=== PATIENT | male | born 1925 | race Caucasian/White ===

== ENCOUNTER 2016-12-31 18:45 | Inpatient (IN) | payer MEDICARE, BC ==
--- NOTE | 2016-12-31 19:24 | EDM.PDOC ---
ED HPI GENERAL MEDICAL PROBLEM - General Chief Complaint: General Stated Complaint: DEHYDRATED, COMING BY AMBULANCE Time Seen by Provider: 12/31/16 19:15 Source of Information: Reports: Patient History Limitations: Reports: No Limitations - History of Present Illness INITIAL COMMENTS - FREE TEXT/NARRATIVE: This 89 yo male patient was brought to the ED by [facility] due to a 3-4 day history of diarrhea, increased shortness of breath and difficulties ambulating due to weakness. The patient reports he started to have diarrhea about 4 days ago and has continued to have loose bowel movements. The patient reports he has been having at least 6 loose stools per day. The patient reports his shortness of breath has been getting worse over the same time period. The patient normally sees Dr. Caruso, but has not been seen with his current symptoms. Onset Date: 12/27/16 Duration: Constant, Getting Worse Location: Reports: Chest (shortness of breath), Generalized (weakness) Quality: Reports: Dull Severity: Moderate Improves with: Reports: None Worsens with: Reports: None Associated Symptoms: Reports: Cough, Shortness of Breath, Weakness, Other ( diarrhea) - Related Data Allergies Allergy/AdvReac Type Severity Reaction Status Date / Time calcium Allergy Unknown UNKNOWN Verified 12/31/16 20:38 fluticasone Allergy Unknown UNKNOWN Verified 12/31/16 20:38 niacin Allergy Unknown UNKNOWN Verified 12/31/16 20:38 pravastatin Allergy Unknown UNKNOWN Verified 12/31/16 20:38 simvastatin Allergy Unknown UNKNOWN Verified 12/31/16 20:38 Sulfa (Sulfonamide Allergy Unknown UNKNOWN Verified 12/31/16 20:38 Antibiotics) Home Meds: Home Meds Furosemide [Furosemide] 1 tab PO DAILY 12/31/16 [History] Metoprolol Succinate [Toprol XL] 100 mg PO DAILY 12/31/16 [History] Past Medical History HEENT History: Reports: Hard of Hearing, Impaired Vision Cardiovascular History: Reports: Hypertension Respiratory History: Reports: None Psychiatric History: Reports: None Endocrine/Metabolic History: Reports: Other (See Below) Other Endocrine/Metabolic History: was diabetic, medications have been stopped Hematologic History: Reports: None Immunologic History: Reports: None Oncologic (Cancer) History: Reports: None Dermatologic History: Reports: None - Past Surgical History Cardiovascular Surgical History: Reports: Coronary Artery Bypass, Vascular Surgery Male Surgical History: Reports: Other (See Below) Other Male Surgeries/Procedures: 1 testicle removed Social & Family History - Tobacco Use Smoking Status *Q: Never Smoker - Recreational Drug Use Recreational Drug Use: No ED ROS GENERAL - Review of Systems Review Of Systems: ROS reveals no pertinent complaints other than HPI. ED EXAM, GENERAL - Physical Exam Exam: See Below Exam Limited By: No Limitations General Appearance: Alert, WD/WN, Moderate Distress, Thin Eye Exam: Bilateral Eye: EOMI, Normal Inspection, PERRL Ears: Normal External Exam, Normal Canal, Hearing Grossly Normal, Normal TMs Nose: Normal Inspection, Normal Mucosa, No Blood Throat/Mouth: Normal Inspection, Normal Lips, Normal Teeth, Normal Gums, Normal Oropharynx, Normal Voice, No Airway Compromise Head: Atraumatic, Normocephalic Neck: Normal Inspection, Supple, Non-Tender, Full Range of Motion Respiratory/Chest: No Respiratory Distress, Lungs Clear, Normal Breath Sounds, No Accessory Muscle Use, Chest Non-Tender Cardiovascular: Normal Peripheral Pulses, Regular Rate, Rhythm, No Edema, No Gallop, No JVD, No Murmur, No Rub GI/Abdominal: Normal Bowel Sounds, Soft, Non-Tender, No Organomegaly, No Distention, No Abnormal Bruit, No Mass (Male) Exam: Deferred Rectal (Males) Exam: Deferred Extremities: Normal Inspection, Normal Range of Motion, Non-Tender, Normal Capillary Refill, No Pedal Edema Neurological: Alert, Oriented, CN II-XII Intact, Normal Cognition, Normal Gait, Normal Reflexes, No Motor/Sensory Deficits Psychiatric: Normal Affect, Normal Mood Skin Exam: Warm, Dry, Intact, Normal Color, No Rash Lymphatic: No Adenopathy Course - Vital Signs Last Recorded V/S: Last Vital Signs Temp 36.1 C 12/31/16 18:42 Pulse 66 12/31/16 18:42 Resp 20 12/31/16 18:42 BP 93/78 12/31/16 18:42 Pulse Ox 100 12/31/16 18:42 - Orders/Labs/Meds Orders: Active Orders 24 hr Category Date Time Status EKG 12 Lead [EKG Documentation Completion] [RC] STAT Care 12/31/16 19:40 Active CULTURE BLOOD [BC] Stat Lab 12/31/16 19:05 Received CULTURE URINE [RM] Stat Lab 12/31/16 20:45 Ordered Sodium Chloride 0.9% [Normal Saline] 1,000 ml Med 12/31/16 20:37 Active IV .BOLUS Medication Orders Sodium Chloride (Normal Saline) 1,000 mls @ 999 mls/hr IV .BOLUS ONE Stop: 12/31/16 21:37 Last Admin: 12/31/16 20:30 Dose: 999 mls/hr Labs: Laboratory Tests 12/31/16 12/31/16 12/31/16 Range/Units 19:05 19:05 19:05 WBC 10.0 (5.0-10.0) 10^3/uL RBC 3.39 L (4.6-6.2) 10^6/uL Hgb 10.1 L (14.0-18.0) g/dL Hct 30.5 L (40.0-54.0) % MCV 90.0 (80-100) fL MCH 29.8 (27.0-34.0) pg MCHC 33.1 (33.0-35.0) g/dL Plt Count 184 (150-450) 10^3/uL Add Manual Diff Yes Neutrophils % (Manual) 78 % Band Neutrophils % 1 % Lymphocytes % (Manual) 12 % Monocytes % (Manual) 9 % Sodium 140 (135-145) mmol/L Potassium 4.2 (3.6-5.0) mmol/L Chloride 101 (101-111) mmol/L Carbon Dioxide 19.0 L (21.0-31.0) mmol/L Anion Gap 24.2 BUN 80 H (7-18) mg/dL Creatinine 3.7 H (0.6-1.3) mg/dL Est Cr Clr Drug Dosing 10.42 mL/min Estimated GFR (MDRD) 16 BUN/Creatinine Ratio 21.62 Glucose 148 H (74-105) mg/dL Lactic Acid 1.5 (0.5-2.2) mmol/L Calcium 9.6 (8.4-10.2) mg/dl Magnesium 2.4 (1.8-2.5) mg/dL Total Bilirubin 0.9 (0.2-1.0) mg/dL AST 22 (10-42) IU/L ALT 15 (10-60) IU/L Alkaline Phosphatase 74 (42-121) IU/L Troponin I 0.05 H* (0.00-0.02) ng/ml B-Natriuretic Peptide 417 H (0-100) pg/ml Total Protein 7.3 (6.7-8.2) g/dl Albumin 3.4 (3.2-5.5) g/dl Globulin 3.9 Albumin/Globulin Ratio 0.87 Urine Color (YELLOW) Urine Appearance (CLEAR) Urine pH (5.0-9.0) Ur Specific [place] (1.005-1.030) Urine Protein (NEGATIVE) Urine Glucose (UA) (NEGATIVE) Urine Ketones (NEGATIVE) Urine Occult Blood (NEGATIVE) Urine Nitrite (NEGATIVE) Urine Bilirubin (NEGATIVE) Urine Urobilinogen (0.2-1.0) mg/dL Ur Leukocyte Esterase (NEGATIVE) Urine RBC /HPF Urine WBC (0-5/HPF) /HPF Ur Epithelial Cells /HPF Urine Bacteria (0-FEW/HPF) /HPF 12/31/16 Range/Units 19:46 WBC (5.0-10.0) 10^3/uL RBC (4.6-6.2) 10^6/uL Hgb (14.0-18.0) g/dL Hct (40.0-54.0) % MCV (80-100) fL MCH (27.0-34.0) pg MCHC (33.0-35.0) g/dL Plt Count (150-450) 10^3/uL Add Manual Diff Neutrophils % (Manual) % Band Neutrophils % % Lymphocytes % (Manual) % Monocytes % (Manual) % Sodium (135-145) mmol/L Potassium (3.6-5.0) mmol/L Chloride (101-111) mmol/L Carbon Dioxide (21.0-31.0) mmol/L Anion Gap BUN (7-18) mg/dL Creatinine (0.6-1.3) mg/dL Est Cr Clr Drug Dosing mL/min Estimated GFR (MDRD) BUN/Creatinine Ratio Glucose (74-105) mg/dL Lactic Acid (0.5-2.2) mmol/L Calcium (8.4-10.2) mg/dl Magnesium (1.8-2.5) mg/dL Total Bilirubin (0.2-1.0) mg/dL AST (10-42) IU/L ALT (10-60) IU/L Alkaline Phosphatase (42-121) IU/L Troponin I (0.00-0.02) ng/ml B-Natriuretic Peptide (0-100) pg/ml Total Protein (6.7-8.2) g/dl Albumin (3.2-5.5) g/dl Globulin Albumin/Globulin Ratio Urine Color Yellow (YELLOW) Urine Appearance Cloudy (CLEAR) Urine pH 6.0 (5.0-9.0) Ur Specific [place] 1.015 (1.005-1.030) Urine Protein >=300 H (NEGATIVE) Urine Glucose (UA) Negative (NEGATIVE) Urine Ketones 15 H (NEGATIVE) Urine Occult Blood Large H (NEGATIVE) Urine Nitrite Negative (NEGATIVE) Urine Bilirubin Small H (NEGATIVE) Urine Urobilinogen 0.2 (0.2-1.0) mg/dL Ur Leukocyte Esterase Large H (NEGATIVE) Urine RBC 5-10 H /HPF Urine WBC Packed H (0-5/HPF) /HPF Ur Epithelial Cells Occasional /HPF Urine Bacteria Many H (0-FEW/HPF) /HPF Meds: Medications Generic Name Dose Route Start Last Admin Trade Name Freq PRN Reason Stop Dose Admin Sodium Chloride 1,000 mls @ 999 mls/hr 12/31/16 20:37 12/31/16 20:30 Normal Saline IV 12/31/16 21:37 999 mls/hr .BOLUS ONE Administration Departure - Departure Time of Disposition: 21:15 Disposition: Admitted As Inpatient 68 Condition: Poor Clinical Impression: ARF (acute renal failure) Qualifiers: Acute renal failure type: unspecified Qualified Code(s): N17.9 - Acute kidney failure, unspecified - Discharge Information Care Plan Goals: Discussed the history, examination, lab, EKG and x-ray results with Dr. Roldan. Dr. Roldan accepted the patient as an inpatient at [facility] in [place]. - My Orders Last 24 Hours: My Active Orders 12/31/16 19:05 CULTURE BLOOD [BC] Stat 12/31/16 19:40 EKG 12 Lead [EKG Documentation Completion] [RC] STAT 12/31/16 20:37 Sodium Chloride 0.9% [Normal Saline] 1,000 ml IV .BOLUS 12/31/16 20:45 CULTURE URINE [RM] Stat - Assessment/Plan Last 24 Hours: My Active Orders 12/31/16 19:05 CULTURE BLOOD [BC] Stat 12/31/16 19:40 EKG 12 Lead [EKG Documentation Completion] [RC] STAT 12/31/16 20:37 Sodium Chloride 0.9% [Normal Saline] 1,000 ml IV .BOLUS 12/31/16 20:45 CULTURE URINE [] Stat
[2016-12-31] MEDS ORDERED: Sodium Chloride 0.9% 1,000 ML IV ONE (20:37)
[2016-12-31] MEDS ORDERED: Ondansetron 4 MG/2 ML SDV IVPUSH PRN (21:55)
[2016-12-31] MEDS ORDERED: oxyCODONE 5 MG Tab PO PRN (21:55)
[2016-12-31] MEDS ORDERED: Ondansetron 4 MG Tab.DIS PO PRN (21:55)
[2016-12-31] MEDS ORDERED: Zolpidem 5 MG Tab PO PRN (21:55)
[2016-12-31] MEDS ORDERED: Morphine 2 MG/ML Syringe IVPUSH PRN (21:55)
--- NOTE | 2016-12-31 22:02 | PCM.HP ---
H&P History of Present Illness - General Date of Service: 12/31/16 Admit Problem/Dx: Admission Diagnosis/Problem Admission Diagnosis/Problem Acute renal failure Source of Information: Patient, Family (daughter), Provider (er) - History of Present Illness Initial Comments - Free Text/Narative: 89-year-old gentleman with a history of coronary artery disease, diabetes, hypertension, dyslipidemia. He is the primary caregiver of his who has significant dementia, weakness. Presented with weakness, diarrhea. The diarrhea started to 3 weeks ago. Has up to 5 brown bowel movement daily. Has been getting progressively weaker. No associated chest pain, no abdominal pain. Does have moderate urinary burning. No associated fever or chills. - Related Data Allergies/Adverse Reactions: Allergies Allergy/AdvReac Type Severity Reaction Status Date / Time calcium Allergy Unknown UNKNOWN Verified 12/31/16 20:38 fluticasone Allergy Unknown UNKNOWN Verified 12/31/16 20:38 niacin Allergy Unknown UNKNOWN Verified 12/31/16 20:38 pravastatin Allergy Unknown UNKNOWN Verified 12/31/16 20:38 simvastatin Allergy Unknown UNKNOWN Verified 12/31/16 20:38 Sulfa (Sulfonamide Allergy Unknown UNKNOWN Verified 12/31/16 20:38 Antibiotics) Home Medications: Home Meds Furosemide [Furosemide] 1 tab PO DAILY 12/31/16 [History] Metoprolol Succinate [Toprol XL] 100 mg PO DAILY 12/31/16 [History] Past Medical History HEENT History: Reports: Hard of Hearing, Impaired Vision Cardiovascular History: Reports: Hypertension Respiratory History: Reports: None Psychiatric History: Reports: None Endocrine/Metabolic History: Reports: Other (See Below) Other Endocrine/Metabolic History: was diabetic, medications have been stopped Hematologic History: Reports: None Immunologic History: Reports: None Oncologic (Cancer) History: Reports: None Dermatologic History: Reports: None - Past Surgical History Cardiovascular Surgical History: Reports: Coronary Artery Bypass, Vascular Surgery Male Surgical History: Reports: Other (See Below) Other Male Surgeries/Procedures: 1 testicle removed Social & Family History - Tobacco Use Smoking Status *Q: Never Smoker - Recreational Drug Use Recreational Drug Use: No H&P Review of Systems - Review of Systems: Review Of Systems: See Below General: Reports: Malaise, Weakness, Fatigue, Decreased Appetite, Weight Loss. Denies: Fever, Chills Pulmonary: Denies: Shortness of Breath, Wheezing Cardiovascular: Denies: Chest Pain, Palpitations Gastrointestinal: Reports: Diarrhea, Nausea, Stool Incontinence. Denies: Abdominal Pain, Vomiting Genitourinary: Reports: Dysuria, Frequency, Burning Psychiatric: Denies: Confusion Exam - Exam Exam: See Below - Vital Signs Vital Signs: Last Vital Signs Temp 36.1 C 12/31/16 18:42 Pulse 66 12/31/16 18:42 Resp 20 12/31/16 18:42 BP 93/78 12/31/16 18:42 Pulse Ox 100 12/31/16 18:42 Weight: 54.431 kg - Exam General: Alert, Oriented Neck: Supple Lungs: Normal Respiratory Effort, Decreased Breath Sounds. No: Rales, Rhonchi Cardiovascular: Regular Rate, Regular Rhythm GI/Abdominal Exam: Normal Bowel Sounds, Soft, Non-Tender Extremities: No Pedal Edema Skin: Warm, Dry Neuro Extensive - Mental Status: Alert, Oriented x3, Normal Mood/Affect - Patient Data Lab Results Last 24 hrs: Chest x-ray by my reading shows no acute infiltrate, no CHF. Result Diagrams: 12/31/16 19:05 12/31/16 19:05 *Q Meaningful Use (ADM) - VTE *Q VTE Criteria *Q: - Stroke *Q Stroke Criteria *Q: - AMI *Q AMI Criteria *Q: - Problem List (1) UTI (urinary tract infection) SNOMED Code(s): 56953509 ICD Code: N39.0 - URINARY TRACT INFECTION, SITE NOT SPECIFIED Status: Acute Current Visit: Yes (2) Diarrhea SNOMED Code(s): 41122310 ICD Code: R19.7 - DIARRHEA, UNSPECIFIED Status: Acute Current Visit: Yes (3) HTN (hypertension) SNOMED Code(s): 58765621 ICD Code: I10 - ESSENTIAL (PRIMARY) HYPERTENSION Status: Acute Current Visit: Yes (4) CAD (coronary artery disease) SNOMED Code(s): 13126896 ICD Code: I25.10 - ATHSCL HEART DISEASE OF [place] CORONARY ARTERY W/O ANG PCTRS Status: Acute Current Visit: Yes (5) ARF (acute renal failure) SNOMED Code(s): 60448632 ICD Code: N17.9 - ACUTE KIDNEY FAILURE, UNSPECIFIED Status: Acute Current Visit: Yes Qualifiers: Acute renal failure type: unspecified Qualified Code(s): N17.9 - Acute kidney failure, unspecified Problem List Initiated/Reviewed/Updated: Yes Orders Last 24hrs: Active Orders 24 hr Category Date Time Status Patient Status [ADT] Routine ADT 12/31/16 21:55 Ordered Antiembolic Devices [RC] PER UNIT ROUTINE Care 12/31/16 21:57 Ordered Glucose [Blood Glucose Check, Bedside] [RC] QIDACANDBED Care 12/31/16 21:54 Ordered Oxygen Therapy [RC] PRN Care 12/31/16 21:55 Ordered Peripheral IV Care [RC] . DIRECTED Care 12/31/16 21:57 Ordered Up With Assistance [RC] ASDIRECTED Care 12/31/16 21:55 Ordered VTE/DVT Education [RC] PER UNIT ROUTINE Care 12/31/16 21:55 Ordered Vital Signs [RC] Q4H Care 12/31/16 21:55 Ordered OT Evaluation and Treatment [CONS] Routine Cons 12/31/16 21:54 Ordered PT Evaluation and Treatment [CONS] Routine Cons 12/31/16 21:54 Ordered Consistent Carbohydrate Diet [DIET] Diet 12/31/16 Breakfast Ordered BASIC METABOLIC PANEL,BMP [CHEM] AM Lab 01/01/17 05:15 Ordered C DIFFICILE TOXIN BY PCR [MREF] Routine Lab 12/31/16 21:53 Uncollected CBC WITH AUTO DIFF [HEME] AM Lab 01/01/17 05:15 Ordered MAGNESIUM [CHEM] AM Lab 01/01/17 05:11 Ordered PHOSPHORUS [CHEM] AM Lab 01/01/17 05:11 Ordered TROPONIN I [CHEM] AM Lab 01/01/17 05:11 Ordered Acetaminophen [Tylenol] Med 12/31/16 21:55 Ordered 650 mg PO Q4H PRN Aspirin Med 01/01/17 08:00 Ordered 81 mg PO WITHBREAKFAST Heparin Sodium Med 12/31/16 22:00 Ordered 5,000 units SUBCUT Q8HR Insulin Aspart [NovoLOG] Med 01/01/17 08:00 Ordered See Protocol SUBCUT TIDAC Metoprolol Succinate [Toprol XL] Med 01/01/17 09:00 Ordered 100 mg PO DAILY Morphine Med 12/31/16 21:55 Ordered 1 mg IVPUSH Q2H PRN Ondansetron [Zofran ODT] Med 12/31/16 21:55 Ordered 4 mg PO Q6H PRN Ondansetron [Zofran] Med 12/31/16 21:55 Ordered 4 mg IVPUSH Q6H PRN Sodium Chloride 0.9% @ 100 MLS/HR(1,000ml) Med 12/31/16 22:00 Ordered Sodium Chloride 0.9% [Normal Saline] 1,000 ml IV ASDIRECTED Sodium Chloride 0.9% [Saline Flush] Med 12/31/16 21:55 Ordered 10 ml FLUSH ASDIRECTED PRN Zolpidem [Ambien] Med 12/31/16 21:55 Ordered 5 mg PO BEDTIME PRN cefTRIAXone [Rocephin] 1 gm Med 12/31/16 22:00 Ordered Sodium Chloride 0.9% [Normal Saline] 50 ml IV Q24H oxyCODONE Med 12/31/16 21:55 Ordered 5 mg PO Q4H PRN Peripheral IV Insertion Adult [OM.PC] Routine Oth 12/31/16 21:55 Ordered Sequential Compression Device [OM.PC] Per Unit Routine Oth 12/31/16 21:57 Ordered Resuscitation Status Routine Resus Stat 12/31/16 21:55 Ordered Medication Orders Acetaminophen (Tylenol) 650 mg PO Q4H PRN PRN Reason: Pain (Mild 1-3)/fever Aspirin (Aspirin) 81 mg PO WITHBREAKFAST [facility] Heparin Sodium (Porcine) (Heparin Sodium) 5,000 units SUBCUT Q8HR [facility] Sodium Chloride (Normal Saline) 1,000 mls @ 100 mls/hr IV ASDIRECTED TRISTAN Ceftriaxone Sodium 1 gm/ (Sodium Chloride) 50 mls @ 100 mls/hr IV Q24H [facility] Insulin Aspart (Novolog) 0 unit SUBCUT TIDAC TRISTAN PRN Reason: Protocol Morphine Sulfate (Morphine) 1 mg IVPUSH Q2H PRN PRN Reason: Pain (severe 7-10) Non-Formulary Medication (Metoprolol Succinate [Toprol Xl]) 100 mg PO DAILY [facility] Ondansetron HCl (Zofran Odt) 4 mg PO Q6H PRN PRN Reason: nausea, able to take PO Ondansetron HCl (Zofran) 4 mg IVPUSH Q6H PRN PRN Reason: Nausea/Vomiting Oxycodone HCl (Oxycodone) 5 mg PO Q4H PRN PRN Reason: Pain (moderate 4-6) Sodium Chloride (Saline Flush) 10 ml FLUSH ASDIRECTED PRN PRN Reason: Keep Vein Open Zolpidem Tartrate (Ambien) 5 mg PO BEDTIME PRN PRN Reason: Sleep Assessment/Plan Comment:: Acute renal failure with a history of chronic kidney disease stage II Likely due to dehydration due to nausea vomiting, diarrhea Well give the patient IV fluids Hold Lasix, lisinopril Follow electrolytes and renal function Diabetes Has low oral intake For now hold amaryl and follow blood sugars Use supplemental insulin as needed Minimally elevated troponin Has history of coronary artery disease, status post CABG Likely due to renal failure Will recheck in the morning Continue metoprolol, aspirin Urinary tract infection Will check urine culture, blood culture Start on Rocephin Diarrhea Check for C. difficile Will hydrate Follow clinically History of hypertension Due to acute renal failure hold the lisinopril History of dyslipidemia DVT prophylaxis will be with subcutaneous heparin Significant weakness We will consult physical and occupational therapy for evaluation and treatment Resuscitative efforts were discussed with the patient He wished to be DNR Discussed with the ER provider, , daughter
[2016-12-31] MEDS: Sodium Chloride 0.9% 1,000 ML IV SCH (22:34)
[2016-12-31] MEDS: cefTRIAXone 1 GM in Sodium Chloride 0.9% 50 ML IV SCH (22:37)
[2016-12-31] MEDS: Heparin Sodium 5,000 Units/ML Vial SUBCUT SCH (22:40)
[2017-01-01] MEDS: Heparin Sodium 5,000 Units/ML Vial SUBCUT SCH ×3 (06:03→22:28)
[2017-01-01] MEDS: Insulin Aspart 100 Units/ML 3 ML Pen SUBCUT SCH ×3 (08:13→17:44)
[2017-01-01] MEDS: Aspirin 81 MG Tab.Chew PO SCH (09:05)
[2017-01-01] MEDS: Metoprolol Succinate 50 MG Tab.ER PO SCH (09:05)
[2017-01-01] MEDS: Sodium Chloride 0.9% 1,000 ML IV SCH ×2 (09:10→19:26)
--- NOTE | 2017-01-01 10:41 | PCM.PN ---
- General Info Date of Service: 01/01/17 Admission Dx/Problem (Free Text): Admission Diagnosis/Problem Admission Diagnosis/Problem Acute renal failure Subjective Update: Remained stable stable overnight. No chest pain, no shortness of breath, no more diarrhea. No fever or chills. Functional Status: Reports: Pain Controlled - Review of Systems General: Reports: Weakness, Fatigue, Malaise. Denies: Fever, Chills Pulmonary: Denies: Shortness of Breath Cardiovascular: Denies: Chest Pain Neurological: Denies: Confusion - Patient Data Vitals - Most Recent: Last Vital Signs Temp 36.7 C 01/01/17 08:27 Pulse 68 01/01/17 09:05 Resp 20 01/01/17 08:27 BP 117/41 L 01/01/17 09:05 Pulse Ox 98 01/01/17 08:27 Weight - Most Recent: 54.431 kg I&O - Last 24 Hours: Intake & Output 12/31/16 01/01/17 01/01/17 22:59 06:59 14:59 Intake Total 1000 792 Balance 1000 792 Lab Results Last 24 Hours: Laboratory Results - last 24 hr 01/01/17 01/01/17 01/01/17 Range/Units 06:40 06:40 07:50 WBC 11.9 H (5.0-10.0) 10^3/uL RBC 3.41 L (4.6-6.2) 10^6/uL Hgb 10.2 L (14.0-18.0) g/dL Hct 31.1 L (40.0-54.0) % MCV 91.2 (80-100) fL MCH 29.9 (27.0-34.0) pg MCHC 32.8 L (33.0-35.0) g/dL Plt Count 177 (150-450) 10^3/uL Add Manual Diff Yes Neutrophils % (Manual) 76 % Band Neutrophils % 3 % Lymphocytes % (Manual) 8 % Monocytes % (Manual) 13 % Sodium 142 (135-145) mmol/L Potassium 3.4 L (3.6-5.0) mmol/L Chloride 106 (101-111) mmol/L Carbon Dioxide 20.0 L (21.0-31.0) mmol/L Anion Gap 19.4 BUN 70 H (7-18) mg/dL Creatinine 3.0 H (0.6-1.3) mg/dL Est Cr Clr Drug Dosing 12.85 mL/min Estimated GFR (MDRD) 20 Glucose 132 H (74-105) mg/dL POC Glucose 126 H (83-110) mg/dl Calcium 8.7 (8.4-10.2) mg/dl Phosphorus 3.3 (2.5-4.6) mg/dL Magnesium 2.2 (1.8-2.5) mg/dL Troponin I 0.07 H* (0.00-0.02) ng/ml Med Orders - Current: Current Medications Acetaminophen (Tylenol) 650 mg PO Q4H PRN PRN Reason: Pain (Mild 1-3)/fever Aspirin (Aspirin) 81 mg PO WITHBREAKFAST [facility] Last Admin: 01/01/17 09:05 Dose: 81 mg Heparin Sodium (Porcine) (Heparin Sodium) 5,000 units SUBCUT Q8HR [facility] Last Admin: 01/01/17 06:03 Dose: 5,000 units Sodium Chloride (Normal Saline) 1,000 mls @ 100 mls/hr IV ASDIRECTED [facility] Last Admin: 01/01/17 09:10 Dose: 100 mls/hr Ceftriaxone Sodium 1 gm/ (Sodium Chloride) 50 mls @ 100 mls/hr IV Q24H [facility] Last Admin: 12/31/16 22:37 Dose: 100 mls/hr Insulin Aspart (Novolog) 0 unit SUBCUT TIDAC [facility] PRN Reason: Protocol Last Admin: 01/01/17 08:13 Dose: Not Given Metoprolol Succinate (Toprol Xl) 100 mg PO DAILY [facility] Last Admin: 01/01/17 09:05 Dose: 100 mg Morphine Sulfate (Morphine) 1 mg IVPUSH Q2H PRN PRN Reason: Pain (severe 7-10) Ondansetron HCl (Zofran Odt) 4 mg PO Q6H PRN PRN Reason: nausea, able to take PO Ondansetron HCl (Zofran) 4 mg IVPUSH Q6H PRN PRN Reason: Nausea/Vomiting Oxycodone HCl (Oxycodone) 5 mg PO Q4H PRN PRN Reason: Pain (moderate 4-6) Potassium Chloride (Klor-Con 10) 20 meq PO BIDMEALS [facility] Stop: 01/02/17 08:01 Sodium Chloride (Saline Flush) 10 ml FLUSH ASDIRECTED PRN PRN Reason: Keep Vein Open Zolpidem Tartrate (Ambien) 5 mg PO BEDTIME PRN PRN Reason: Sleep Discontinued Medications Sodium Chloride (Normal Saline) 1,000 mls @ 999 mls/hr IV .BOLUS ONE Stop: 12/31/16 21:37 Last Infusion: 12/31/16 20:45 Dose: 125 mls/hr - Exam General: Alert, Oriented Neck: Supple Lungs: Normal Respiratory Effort, Decreased Breath Sounds GI/Abdominal Exam: Normal Bowel Sounds, Soft, Non-Tender Extremities: No Pedal Edema Skin: Warm, Dry Neurological: No New Focal Deficit Psy/Mental Status: Alert, Normal Affect, Normal Mood - Problem List & Annotations (1) UTI (urinary tract infection) SNOMED Code(s): 39909854 Code(s): N39.0 - URINARY TRACT INFECTION, SITE NOT SPECIFIED Status: Acute Current Visit: Yes (2) Diarrhea SNOMED Code(s): 16392633 Code(s): R19.7 - DIARRHEA, UNSPECIFIED Status: Acute Current Visit: Yes (3) HTN (hypertension) SNOMED Code(s): 06972466 Code(s): I10 - ESSENTIAL (PRIMARY) HYPERTENSION Status: Acute Current Visit: Yes (4) CAD (coronary artery disease) SNOMED Code(s): 51657283 Code(s): I25.10 - ATHSCL HEART DISEASE OF [place] CORONARY ARTERY W/O ANG PCTRS Status: Acute Current Visit: Yes (5) ARF (acute renal failure) SNOMED Code(s): 45181356 Code(s): N17.9 - ACUTE KIDNEY FAILURE, UNSPECIFIED Status: Acute Current Visit: Yes Qualifiers: Acute renal failure type: unspecified Qualified Code(s): N17.9 - Acute kidney failure, unspecified - Problem List Review Problem List Initiated/Reviewed/Updated: Yes - My Orders Last 24 Hours: My Active Orders 01/01/17 08:49 Consult to Speech Language Pathology [VIDEO PRODUCTION INTERN Evaluation and Treatment] [CONS] Routine 01/01/17 18:00 Potassium Chloride [Klor-Con 10] 20 meq PO BIDMEALS - Plan Plan:: Acute renal failure with a history of chronic kidney disease stage II Likely due to dehydration due to nausea vomiting, diarrhea Improving Well give the patient IV fluids Continue to Hold Lasix, lisinopril Follow electrolytes and renal function Diabetes Has low oral intake For now hold amaryl and follow blood sugars Use supplemental insulin as needed Minimally elevated troponin Has history of coronary artery disease, status post CABG Likely due to renal failure Continue metoprolol, aspirin Urinary tract infection Pending urine culture, blood culture Continue on Rocephin Diarrhea Check for C. difficile Will hydrate Follow clinically History of hypertension Due to acute renal failure hold the lisinopril DVT prophylaxis will be with subcutaneous heparin Significant weakness We will consult physical and occupational therapy for evaluation and treatment Resuscitative efforts were discussed with the patient on admission He wished to be DNR
[2017-01-01] MEDS: Potassium Chloride 10% 20 MEQ/15 ML Soln 15 ML UD Cup PO SCH (17:44)
[2017-01-01] MEDS ORDERED: Potassium Chloride 10 MEQ Tab.ER PO SCH (18:00)
[2017-01-01] MEDS: cefTRIAXone 1 GM in Sodium Chloride 0.9% 50 ML IV SCH (22:28)
[2017-01-02] MEDS: Sodium Chloride 0.9% 1,000 ML IV SCH ×2 (06:04→16:19)
[2017-01-02] MEDS: Heparin Sodium 5,000 Units/ML Vial SUBCUT SCH ×3 (06:06→23:38)
[2017-01-02] MEDS: Potassium Chloride 10% 20 MEQ/15 ML Soln 15 ML UD Cup PO SCH (09:46)
[2017-01-02] MEDS: Metoprolol Succinate 50 MG Tab.ER PO SCH (09:46)
[2017-01-02] MEDS: Insulin Aspart 100 Units/ML 3 ML Pen SUBCUT SCH ×3 (09:46→17:56)
[2017-01-02] MEDS: Aspirin 81 MG Tab.Chew PO SCH (09:46)
--- NOTE | 2017-01-02 12:47 | PCM.PN ---
- General Info Date of Service: 01/02/17 Admission Dx/Problem (Free Text): Admission Diagnosis/Problem Admission Diagnosis/Problem Acute renal failure Subjective Update: Remained stable stable overnight. No chest pain, no shortness of breath, no more diarrhea. No fever or chills. c/o difficulty swallowing food and saliva small amounts of spitting up - Review of Systems General: Reports: Weakness. Denies: Fever Pulmonary: Denies: Shortness of Breath Cardiovascular: Denies: Chest Pain Gastrointestinal: Denies: Abdominal Pain Neurological: Denies: Confusion - Patient Data Vitals - Most Recent: Last Vital Signs Temp 36.6 C 01/02/17 11:00 Pulse 58 L 01/02/17 11:00 Resp 18 01/02/17 11:00 BP 147/59 H 01/02/17 11:00 Pulse Ox 100 01/02/17 11:00 Weight - Most Recent: 54.431 kg I&O - Last 24 Hours: Intake & Output 01/01/17 01/02/17 01/02/17 22:59 06:59 14:59 Intake Total 1100 Balance 1100 Lab Results Last 24 Hours: Laboratory Results - last 24 hr 01/01/17 01/01/17 01/02/17 Range/Units 16:54 20:47 06:35 WBC 9.8 (5.0-10.0) 10^3/uL RBC 3.18 L (4.6-6.2) 10^6/uL Hgb 9.4 L (14.0-18.0) g/dL Hct 29.6 L (40.0-54.0) % MCV 93.1 (80-100) fL MCH 29.6 (27.0-34.0) pg MCHC 31.8 L (33.0-35.0) g/dL Plt Count 150 (150-450) 10^3/uL Add Manual Diff Yes Neutrophils % (Manual) 72 % Band Neutrophils % 1 % Lymphocytes % (Manual) 22 % Monocytes % (Manual) 5 % Sodium (135-145) mmol/L Potassium (3.6-5.0) mmol/L Chloride (101-111) mmol/L Carbon Dioxide (21.0-31.0) mmol/L Anion Gap BUN (7-18) mg/dL Creatinine (0.6-1.3) mg/dL Est Cr Clr Drug Dosing mL/min Estimated GFR (MDRD) Glucose (74-105) mg/dL POC Glucose 166 H 108 (83-110) mg/dl Calcium (8.4-10.2) mg/dl 01/02/17 01/02/17 01/02/17 Range/Units 06:35 08:10 11:12 WBC (5.0-10.0) 10^3/uL RBC (4.6-6.2) 10^6/uL Hgb (14.0-18.0) g/dL Hct (40.0-54.0) % MCV (80-100) fL MCH (27.0-34.0) pg MCHC (33.0-35.0) g/dL Plt Count (150-450) 10^3/uL Add Manual Diff Neutrophils % (Manual) % Band Neutrophils % % Lymphocytes % (Manual) % Monocytes % (Manual) % Sodium 142 (135-145) mmol/L Potassium 4.2 (3.6-5.0) mmol/L Chloride 111 (101-111) mmol/L Carbon Dioxide 20.0 L (21.0-31.0) mmol/L Anion Gap 15.2 BUN 50 H (7-18) mg/dL Creatinine 2.2 H (0.6-1.3) mg/dL Est Cr Clr Drug Dosing 17.53 mL/min Estimated GFR (MDRD) 28 Glucose 84 (74-105) mg/dL POC Glucose 81 L 93 (83-110) mg/dl Calcium 8.3 L (8.4-10.2) mg/dl Med Orders - Current: Current Medications Acetaminophen (Tylenol) 650 mg PO Q4H PRN PRN Reason: Pain (Mild 1-3)/fever Aspirin (Aspirin) 81 mg PO WITHBREAKFAST [facility] Last Admin: 01/02/17 09:46 Dose: 81 mg Heparin Sodium (Porcine) (Heparin Sodium) 5,000 units SUBCUT Q8HR [facility] Last Admin: 01/02/17 06:06 Dose: 5,000 units Sodium Chloride (Normal Saline) 1,000 mls @ 100 mls/hr IV ASDIRECTED [facility] Last Admin: 01/02/17 06:04 Dose: 100 mls/hr Ceftriaxone Sodium 1 gm/ (Sodium Chloride) 50 mls @ 100 mls/hr IV Q24H [facility] Last Admin: 01/01/17 22:28 Dose: 100 mls/hr Insulin Aspart (Novolog) 0 unit SUBCUT TIDAC [facility] PRN Reason: Protocol Last Admin: 01/02/17 09:46 Dose: Not Given Metoprolol Succinate (Toprol Xl) 100 mg PO DAILY [facility] Last Admin: 01/02/17 09:46 Dose: 100 mg Morphine Sulfate (Morphine) 1 mg IVPUSH Q2H PRN PRN Reason: Pain (severe 7-10) Ondansetron HCl (Zofran Odt) 4 mg PO Q6H PRN PRN Reason: nausea, able to take PO Ondansetron HCl (Zofran) 4 mg IVPUSH Q6H PRN PRN Reason: Nausea/Vomiting Oxycodone HCl (Oxycodone) 5 mg PO Q4H PRN PRN Reason: Pain (moderate 4-6) Sodium Chloride (Saline Flush) 10 ml FLUSH ASDIRECTED PRN PRN Reason: Keep Vein Open Zolpidem Tartrate (Ambien) 5 mg PO BEDTIME PRN PRN Reason: Sleep Discontinued Medications Sodium Chloride (Normal Saline) 1,000 mls @ 999 mls/hr IV .BOLUS ONE Stop: 12/31/16 21:37 Last Infusion: 12/31/16 20:45 Dose: 125 mls/hr Potassium Chloride (Klor-Con 10) 20 meq PO BIDMEALS [facility] Stop: 01/02/17 08:01 Potassium Chloride (Potassium Chloride Solution) 20 meq PO BIDMEALS [facility] Stop: 01/02/17 08:01 Last Admin: 01/02/17 09:46 Dose: 20 meq - Exam General: Alert, Oriented Neck: Supple Lungs: Clear to Auscultation, Normal Respiratory Effort Cardiovascular: Regular Rate, Regular Rhythm GI/Abdominal Exam: Normal Bowel Sounds, Soft Extremities: No Pedal Edema Skin: Warm, Dry Neurological: No New Focal Deficit Psy/Mental Status: Alert, Normal Affect - Problem List & Annotations (1) UTI (urinary tract infection) SNOMED Code(s): 75849740 Code(s): N39.0 - URINARY TRACT INFECTION, SITE NOT SPECIFIED Status: Acute Current Visit: Yes (2) Diarrhea SNOMED Code(s): 61893153 Code(s): R19.7 - DIARRHEA, UNSPECIFIED Status: Acute Current Visit: Yes (3) HTN (hypertension) SNOMED Code(s): 16197736 Code(s): I10 - ESSENTIAL (PRIMARY) HYPERTENSION Status: Acute Current Visit: Yes (4) CAD (coronary artery disease) SNOMED Code(s): 65610743 Code(s): I25.10 - ATHSCL HEART DISEASE OF [place] CORONARY ARTERY W/O ANG PCTRS Status: Acute Current Visit: Yes (5) ARF (acute renal failure) SNOMED Code(s): 93127730 Code(s): N17.9 - ACUTE KIDNEY FAILURE, UNSPECIFIED Status: Acute Current Visit: Yes Qualifiers: Acute renal failure type: unspecified Qualified Code(s): N17.9 - Acute kidney failure, unspecified - Problem List Review Problem List Initiated/Reviewed/Updated: Yes - My Orders Last 24 Hours: My Active Orders 01/03/17 05:15 BASIC METABOLIC PANEL,BMP [CHEM] AM CBC WITH AUTO DIFF [HEME] AM - Plan Plan:: Acute renal failure with a history of chronic kidney disease stage II Likely due to dehydration due to nausea vomiting, diarrhea Improving continue IV fluids Continue to Hold Lasix, lisinopril Follow electrolytes and renal function Diabetes Has low oral intake For now hold amaryl and follow blood sugars Use supplemental insulin as needed Minimally elevated troponin Has history of coronary artery disease, status post CABG Likely due to renal failure Continue metoprolol, aspirin Urinary tract infection urine culture: strep agalactiae sens to pcn, ampicillin blood culture: neg Continue on Rocephin Diarrhea none since admission Follow clinically History of hypertension Due to acute renal failure hold the lisinopril DVT prophylaxis will be with subcutaneous heparin Significant weakness continue to work with physical and occupational therapy swallow evaluation Resuscitative efforts were discussed with the patient on admission He wished to be DNR
[2017-01-02] MEDS ORDERED: Lidocaine 2% Viscous Solution 15 ML Cup PO PRN (15:27)
[2017-01-02] MEDS: cefTRIAXone 1 GM in Sodium Chloride 0.9% 50 ML IV SCH (23:35)
[2017-01-03] MEDS: Sodium Chloride 0.9% 1,000 ML IV SCH ×2 (02:53→14:24)
[2017-01-03] MEDS: Heparin Sodium 5,000 Units/ML Vial SUBCUT SCH ×3 (08:03→21:58)
[2017-01-03] MEDS: Insulin Aspart 100 Units/ML 3 ML Pen SUBCUT SCH ×3 (08:10→17:56)
[2017-01-03] MEDS: Metoprolol Succinate 50 MG Tab.ER PO SCH (08:53)
[2017-01-03] MEDS: Aspirin 81 MG Tab.Chew PO SCH (08:53)
--- NOTE | 2017-01-03 09:28 | EKG ---
12/31/2016- LALITO KIMBALL - EKG per my reading shows sinus rhythm with no acute ST changes. [facility] /[id number]
[2017-01-03] MEDS: Sodium Bicarbonate 650 MG Tab PO SCH ×2 (13:03→21:59)
--- NOTE | 2017-01-03 13:07 | PCM.PN ---
- General Info Date of Service: 01/03/17 Admission Dx/Problem (Free Text): Admission Diagnosis/Problem Admission Diagnosis/Problem Acute renal failure Subjective Update: Remained stable stable overnight. No chest pain, no shortness of breath, no diarrhea. No fever or chills. swallow eval suggested modified diet has been up today with pt Functional Status: Reports: Pain Controlled - Review of Systems General: Denies: Fever Pulmonary: Denies: Shortness of Breath Cardiovascular: Denies: Chest Pain Gastrointestinal: Denies: Abdominal Pain Genitourinary: Denies: Dysuria Neurological: Denies: Confusion - Patient Data Vitals - Most Recent: Last Vital Signs Temp 36.9 C 01/03/17 11:00 Pulse 60 01/03/17 11:00 Resp 20 01/03/17 11:00 BP 149/47 H 01/03/17 11:00 Pulse Ox 100 01/03/17 11:00 Weight - Most Recent: 54.431 kg I&O - Last 24 Hours: Intake & Output 01/02/17 01/03/17 01/03/17 22:59 06:59 14:59 Intake Total 1016 1111 100 Balance 1016 1111 100 Lab Results Last 24 Hours: Laboratory Results - last 24 hr 01/02/17 01/02/17 01/03/17 Range/Units 16:54 21:26 07:26 WBC 9.1 (5.0-10.0) 10^3/uL RBC 3.00 L (4.6-6.2) 10^6/uL Hgb 9.0 L (14.0-18.0) g/dL Hct 28.0 L (40.0-54.0) % MCV 93.3 (80-100) fL MCH 30.0 (27.0-34.0) pg MCHC 32.1 L (33.0-35.0) g/dL Plt Count 136 L (150-450) 10^3/uL Add Manual Diff Yes Neutrophils % (Manual) 70 % Band Neutrophils % 2 % Lymphocytes % (Manual) 23 % Monocytes % (Manual) 5 % Sodium (135-145) mmol/L Potassium (3.6-5.0) mmol/L Chloride (101-111) mmol/L Carbon Dioxide (21.0-31.0) mmol/L Anion Gap BUN (7-18) mg/dL Creatinine (0.6-1.3) mg/dL Est Cr Clr Drug Dosing mL/min Estimated GFR (MDRD) Glucose (74-105) mg/dL POC Glucose 157 H 184 H (83-110) mg/dl Calcium (8.4-10.2) mg/dl 01/03/17 01/03/17 01/03/17 Range/Units 07:26 08:01 11:15 WBC (5.0-10.0) 10^3/uL RBC (4.6-6.2) 10^6/uL Hgb (14.0-18.0) g/dL Hct (40.0-54.0) % MCV (80-100) fL MCH (27.0-34.0) pg MCHC (33.0-35.0) g/dL Plt Count (150-450) 10^3/uL Add Manual Diff Neutrophils % (Manual) % Band Neutrophils % % Lymphocytes % (Manual) % Monocytes % (Manual) % Sodium 140 (135-145) mmol/L Potassium 4.0 (3.6-5.0) mmol/L Chloride 112 H (101-111) mmol/L Carbon Dioxide 18.0 L (21.0-31.0) mmol/L Anion Gap 14.0 BUN 33 H (7-18) mg/dL Creatinine 1.6 H (0.6-1.3) mg/dL Est Cr Clr Drug Dosing 24.10 mL/min Estimated GFR (MDRD) 41 Glucose 106 H (74-105) mg/dL POC Glucose 110 181 H (83-110) mg/dl Calcium 8.2 L (8.4-10.2) mg/dl Med Orders - Current: Current Medications Acetaminophen (Tylenol) 650 mg PO Q4H PRN PRN Reason: Pain (Mild 1-3)/fever Aspirin (Aspirin) 81 mg PO WITHBREAKFAST [facility] Last Admin: 01/03/17 08:53 Dose: 81 mg Heparin Sodium (Porcine) (Heparin Sodium) 5,000 units SUBCUT Q8HR [facility] Last Admin: 01/03/17 13:03 Dose: 5,000 units Sodium Chloride (Normal Saline) 1,000 mls @ 100 mls/hr IV ASDIRECTED [facility] Last Admin: 01/03/17 02:53 Dose: 100 mls/hr Ceftriaxone Sodium 1 gm/ (Sodium Chloride) 50 mls @ 100 mls/hr IV Q24H [facility] Last Admin: 01/02/17 23:35 Dose: 100 mls/hr Insulin Aspart (Novolog) 0 unit SUBCUT TIDAC [facility] PRN Reason: Protocol Last Admin: 01/03/17 13:02 Dose: 2 units Lidocaine HCl (Xylocaine 2% Viscous) 15 ml PO Q6H PRN PRN Reason: pain, mouth sore Metoprolol Succinate (Toprol Xl) 100 mg PO DAILY [facility] Last Admin: 01/03/17 08:53 Dose: 100 mg Morphine Sulfate (Morphine) 1 mg IVPUSH Q2H PRN PRN Reason: Pain (severe 7-10) Ondansetron HCl (Zofran Odt) 4 mg PO Q6H PRN PRN Reason: nausea, able to take PO Ondansetron HCl (Zofran) 4 mg IVPUSH Q6H PRN PRN Reason: Nausea/Vomiting Oxycodone HCl (Oxycodone) 5 mg PO Q4H PRN PRN Reason: Pain (moderate 4-6) Sodium Bicarbonate (Sodium Bicarbonate) 650 mg PO BID [facility] Last Admin: 01/03/17 13:03 Dose: 650 mg Sodium Chloride (Saline Flush) 10 ml FLUSH ASDIRECTED PRN PRN Reason: Keep Vein Open Zolpidem Tartrate (Ambien) 5 mg PO BEDTIME PRN PRN Reason: Sleep Discontinued Medications Sodium Chloride (Normal Saline) 1,000 mls @ 999 mls/hr IV .BOLUS ONE Stop: 12/31/16 21:37 Last Infusion: 12/31/16 20:45 Dose: 125 mls/hr Potassium Chloride (Klor-Con 10) 20 meq PO BIDMEALS [facility] Stop: 01/02/17 08:01 Potassium Chloride (Potassium Chloride Solution) 20 meq PO BIDMEALS [facility] Stop: 01/02/17 08:01 Last Admin: 01/02/17 09:46 Dose: 20 meq - Exam General: Alert, Oriented Neck: Supple Lungs: Clear to Auscultation, Normal Respiratory Effort. No: Rales Cardiovascular: Regular Rate, Regular Rhythm GI/Abdominal Exam: Normal Bowel Sounds, Soft, Non-Tender Extremities: No Pedal Edema - Problem List & Annotations (1) UTI (urinary tract infection) SNOMED Code(s): 89994918 Code(s): N39.0 - URINARY TRACT INFECTION, SITE NOT SPECIFIED Status: Acute Current Visit: Yes (2) Diarrhea SNOMED Code(s): 14015354 Code(s): R19.7 - DIARRHEA, UNSPECIFIED Status: Acute Current Visit: Yes (3) HTN (hypertension) SNOMED Code(s): 13473628 Code(s): I10 - ESSENTIAL (PRIMARY) HYPERTENSION Status: Acute Current Visit: Yes (4) CAD (coronary artery disease) SNOMED Code(s): 20361842 Code(s): I25.10 - ATHSCL HEART DISEASE OF [place] CORONARY ARTERY W/O ANG PCTRS Status: Acute Current Visit: Yes (5) ARF (acute renal failure) SNOMED Code(s): 35308598 Code(s): N17.9 - ACUTE KIDNEY FAILURE, UNSPECIFIED Status: Acute Current Visit: Yes Qualifiers: Acute renal failure type: unspecified Qualified Code(s): N17.9 - Acute kidney failure, unspecified - Problem List Review Problem List Initiated/Reviewed/Updated: Yes - My Orders Last 24 Hours: My Active Orders 01/02/17 12:48 OT Evaluation and Treatment [CONS] Routine 01/02/17 15:27 Lidocaine 2% [Xylocaine 2% Viscous] 15 ml PO Q6H PRN 01/02/17 Dinner Mechanical Soft Diet [DIET] Thickened Liquids [DIET] 01/03/17 12:45 Sodium Bicarbonate 650 mg PO BID 01/04/17 05:15 BASIC METABOLIC PANEL,BMP [CHEM] AM CBC WITH AUTO DIFF [HEME] AM - Plan Plan:: Acute renal failure with a history of chronic kidney disease stage II Likely due to dehydration due to nausea vomiting, diarrhea Improving continue IV fluids Continue to Hold Lasix, lisinopril add sodium bicarb for metabolic acidosis Follow electrolytes and renal function Diabetes Has low oral intake For now hold amaryl and follow blood sugars Use supplemental insulin as needed Minimally elevated troponin Has history of coronary artery disease, status post CABG Likely due to renal failure no symptoms Continue metoprolol, aspirin Urinary tract infection urine culture: strep agalactiae sens to pcn, ampicillin blood culture: neg Continue on Rocephin Diarrhea none since admission Follow clinically History of hypertension given the acute renal failure hold the lisinopril DVT prophylaxis will be with subcutaneous heparin Significant weakness continue to work with physical and occupational therapy swallow evaluation - on modified diet Resuscitative efforts were discussed with the patient on admission He wished to be DNR
[2017-01-03] MEDS: cefTRIAXone 1 GM in Sodium Chloride 0.9% 50 ML IV SCH (21:58)
[2017-01-04] MEDS: Sodium Chloride 0.9% 1,000 ML IV SCH ×2 (01:05→11:06)
[2017-01-04] MEDS: Heparin Sodium 5,000 Units/ML Vial SUBCUT SCH ×3 (06:49→22:15)
[2017-01-04] MEDS: Sodium Bicarbonate 650 MG Tab PO SCH ×2 (10:15→20:51)
[2017-01-04] MEDS: Metoprolol Succinate 50 MG Tab.ER PO SCH (10:15)
[2017-01-04] MEDS: Aspirin 81 MG Tab.Chew PO SCH (10:19)
[2017-01-04] MEDS: Insulin Aspart 100 Units/ML 3 ML Pen SUBCUT SCH ×3 (10:30→17:41)
--- NOTE | 2017-01-04 15:15 | PCM.PN ---
- General Info Date of Service: 01/04/17 Admission Dx/Problem (Free Text): Admission Diagnosis/Problem Admission Diagnosis/Problem Acute renal failure Subjective Update: Remained stable overnight. No chest pain, no shortness of breath, no diarrhea. No fever or chills. swallow eval suggested modified diet has been up with pt, visiting Functional Status: Reports: Pain Controlled, Tolerating Diet - Review of Systems Pulmonary: Denies: Shortness of Breath Cardiovascular: Denies: Chest Pain Gastrointestinal: Denies: Abdominal Pain Genitourinary: Reports: Other (hematuria noted). Denies: Dysuria Neurological: Denies: Confusion - Patient Data Vitals - Most Recent: Last Vital Signs Temp 36.4 C 01/04/17 11:00 Pulse 65 01/04/17 11:00 Resp 20 01/04/17 11:00 BP 149/61 H 01/04/17 11:00 Pulse Ox 99 01/04/17 11:00 Weight - Most Recent: 54.431 kg I&O - Last 24 Hours: Intake & Output 01/04/17 01/04/17 01/04/17 06:59 14:59 22:59 Intake Total 50 1858 Balance 50 1858 Lab Results Last 24 Hours: Laboratory Results - last 24 hr 01/03/17 01/03/17 01/04/17 Range/Units 17:12 21:15 06:00 WBC 9.5 (5.0-10.0) 10^3/uL RBC 2.77 L (4.6-6.2) 10^6/uL Hgb 8.3 L (14.0-18.0) g/dL Hct 25.7 L (40.0-54.0) % MCV 92.8 (80-100) fL MCH 30.0 (27.0-34.0) pg MCHC 32.3 L (33.0-35.0) g/dL Plt Count 120 L (150-450) 10^3/uL Add Manual Diff Yes Neutrophils % (Manual) 66 % Band Neutrophils % 5 % Lymphocytes % (Manual) 19 % Monocytes % (Manual) 10 % Sodium (135-145) mmol/L Potassium (3.6-5.0) mmol/L Chloride (101-111) mmol/L Carbon Dioxide (21.0-31.0) mmol/L Anion Gap BUN (7-18) mg/dL Creatinine (0.6-1.3) mg/dL Est Cr Clr Drug Dosing mL/min Estimated GFR (MDRD) Glucose (74-105) mg/dL POC Glucose 156 H 202 H (83-110) mg/dl Calcium (8.4-10.2) mg/dl 01/04/17 01/04/17 01/04/17 Range/Units 06:00 07:51 11:10 WBC (5.0-10.0) 10^3/uL RBC (4.6-6.2) 10^6/uL Hgb (14.0-18.0) g/dL Hct (40.0-54.0) % MCV (80-100) fL MCH (27.0-34.0) pg MCHC (33.0-35.0) g/dL Plt Count (150-450) 10^3/uL Add Manual Diff Neutrophils % (Manual) % Band Neutrophils % % Lymphocytes % (Manual) % Monocytes % (Manual) % Sodium 139 (135-145) mmol/L Potassium 4.0 (3.6-5.0) mmol/L Chloride 113 H (101-111) mmol/L Carbon Dioxide 18.0 L (21.0-31.0) mmol/L Anion Gap 12.0 BUN 24 H (7-18) mg/dL Creatinine 1.4 H (0.6-1.3) mg/dL Est Cr Clr Drug Dosing 27.54 mL/min Estimated GFR (MDRD) 48 Glucose 97 (74-105) mg/dL POC Glucose 95 135 H (83-110) mg/dl Calcium 7.7 L (8.4-10.2) mg/dl Med Orders - Current: Current Medications Acetaminophen (Tylenol) 650 mg PO Q4H PRN PRN Reason: Pain (Mild 1-3)/fever Aspirin (Aspirin) 81 mg PO WITHBREAKFAST [facility] Last Admin: 01/04/17 10:19 Dose: Not Given Heparin Sodium (Porcine) (Heparin Sodium) 5,000 units SUBCUT Q8HR [facility] Last Admin: 01/04/17 14:38 Dose: Not Given Ceftriaxone Sodium 1 gm/ (Sodium Chloride) 50 mls @ 100 mls/hr IV Q24H [facility] Last Admin: 01/03/17 21:58 Dose: 100 mls/hr Insulin Aspart (Novolog) 0 unit SUBCUT TIDAC [facility] PRN Reason: Protocol Last Admin: 01/04/17 12:30 Dose: Not Given Lidocaine HCl (Xylocaine 2% Viscous) 15 ml PO Q6H PRN PRN Reason: pain, mouth sore Metoprolol Succinate (Toprol Xl) 100 mg PO DAILY [facility] Last Admin: 01/04/17 10:15 Dose: 100 mg Morphine Sulfate (Morphine) 1 mg IVPUSH Q2H PRN PRN Reason: Pain (severe 7-10) Ondansetron HCl (Zofran Odt) 4 mg PO Q6H PRN PRN Reason: nausea, able to take PO Ondansetron HCl (Zofran) 4 mg IVPUSH Q6H PRN PRN Reason: Nausea/Vomiting Oxycodone HCl (Oxycodone) 5 mg PO Q4H PRN PRN Reason: Pain (moderate 4-6) Sodium Bicarbonate (Sodium Bicarbonate) 650 mg PO BID [facility] Last Admin: 01/04/17 10:15 Dose: 650 mg Sodium Chloride (Saline Flush) 10 ml FLUSH ASDIRECTED PRN PRN Reason: Keep Vein Open Zolpidem Tartrate (Ambien) 5 mg PO BEDTIME PRN PRN Reason: Sleep Discontinued Medications Sodium Chloride (Normal Saline) 1,000 mls @ 999 mls/hr IV .BOLUS ONE Stop: 12/31/16 21:37 Last Infusion: 12/31/16 20:45 Dose: 125 mls/hr Sodium Chloride (Normal Saline) 1,000 mls @ 100 mls/hr IV ASDIRECTED [facility] Last Admin: 01/04/17 11:06 Dose: 100 mls/hr Potassium Chloride (Klor-Con 10) 20 meq PO BIDMEALS [facility] Stop: 01/02/17 08:01 Potassium Chloride (Potassium Chloride Solution) 20 meq PO BIDMEALS [facility] Stop: 01/02/17 08:01 Last Admin: 01/02/17 09:46 Dose: 20 meq - Exam General: Alert, Oriented Neck: Supple Lungs: Normal Respiratory Effort, Crackles (at bases) Cardiovascular: Regular Rate, Regular Rhythm GI/Abdominal Exam: Normal Bowel Sounds, Soft Extremities: No Pedal Edema - Problem List & Annotations (1) UTI (urinary tract infection) SNOMED Code(s): 12641385 Code(s): N39.0 - URINARY TRACT INFECTION, SITE NOT SPECIFIED Status: Acute Current Visit: Yes (2) Diarrhea SNOMED Code(s): 47725339 Code(s): R19.7 - DIARRHEA, UNSPECIFIED Status: Acute Current Visit: Yes (3) HTN (hypertension) SNOMED Code(s): 45633012 Code(s): I10 - ESSENTIAL (PRIMARY) HYPERTENSION Status: Acute Current Visit: Yes (4) CAD (coronary artery disease) SNOMED Code(s): 48748194 Code(s): I25.10 - ATHSCL HEART DISEASE OF [place] CORONARY ARTERY W/O ANG PCTRS Status: Acute Current Visit: Yes (5) ARF (acute renal failure) SNOMED Code(s): 97398046 Code(s): N17.9 - ACUTE KIDNEY FAILURE, UNSPECIFIED Status: Acute Current Visit: Yes Qualifiers: Acute renal failure type: unspecified Qualified Code(s): N17.9 - Acute kidney failure, unspecified - Problem List Review Problem List Initiated/Reviewed/Updated: Yes - My Orders Last 24 Hours: My Active Orders 01/05/17 05:15 BASIC METABOLIC PANEL,BMP [CHEM] AM CBC WITH AUTO DIFF [HEME] AM - Plan Plan:: Acute renal failure with a history of chronic kidney disease stage III Likely due to dehydration due to nausea vomiting, diarrhea Improving stop IV fluids Continue to Hold Lasix, lisinopril cont sodium bicarb for metabolic acidosis Follow electrolytes and renal function Diabetes Has low oral intake For now hold amaryl and follow blood sugars Use supplemental insulin as needed Minimally elevated troponin Has history of coronary artery disease, status post CABG Likely due to renal failure no symptoms Continue metoprolol, aspirin Urinary tract infection urine culture: strep agalactiae sens to pcn, ampicillin blood culture: neg Continue on Rocephin Diarrhea resolved none since admission Follow clinically History of hypertension given the acute renal failure hold the lisinopril DVT prophylaxis will be with subcutaneous heparin Significant weakness continue to work with physical and occupational therapy swallow evaluation - on modified diet Resuscitative efforts were discussed with the patient on admission He wished to be DNR
[2017-01-04] MEDS: cefTRIAXone 1 GM in Sodium Chloride 0.9% 50 ML IV SCH (22:14)
[2017-01-05] MEDS: Heparin Sodium 5,000 Units/ML Vial SUBCUT SCH ×3 (05:34→22:44)
[2017-01-05] MEDS: Insulin Aspart 100 Units/ML 3 ML Pen SUBCUT SCH ×3 (08:35→17:29)
[2017-01-05] MEDS: Metoprolol Succinate 50 MG Tab.ER PO SCH (09:02)
[2017-01-05] MEDS: Sodium Bicarbonate 650 MG Tab PO SCH ×2 (09:02→21:13)
[2017-01-05] MEDS: Aspirin 81 MG Tab.Chew PO SCH (09:37)
[2017-01-05] MEDS: Acetaminophen 325 MG Tab PO PRN (21:13)
[2017-01-05] MEDS: cefTRIAXone 1 GM in Sodium Chloride 0.9% 50 ML IV SCH (22:46)
[2017-01-06] MEDS: Heparin Sodium 5,000 Units/ML Vial SUBCUT SCH ×2 (05:57→13:33)
--- NOTE | 2017-01-06 07:07 | PN ---
DATE: 01/05/2017 INTERVAL HISTORY: Mr. Mahoney is an 89-year-old gentleman who was admitted from home along with his , Jane. They live in an apartment in [place] and have apparently been in [facility] for some time. Mr. Mahoney was admitted with dehydration because of ongoing diarrhea and was also found to be in acute renal failure with a BUN of 80 and creatinine of 3.7. He received IV fluids. He has been progressing. IV fluids have now been discontinued, and renal function has improved somewhat. Review of his clinical data shows adequate oral intake since IV fluids have been discontinued. He is voiding and moving his bowels. He is tolerating his diet. Vital signs have been stable, and he remains afebrile. Lab work was performed today. This included CBC and basic panel. CBC shows white count of 10.8, hemoglobin and hematocrit are stable and slightly improved at 9.1 and 28.2, and platelets are slightly decreased at 134. Chemistry showed normal electrolytes. BUN and creatinine have improved to 18 and 1.3 with a GFR of 52 and creatinine clearance of 29.7. Blood sugars are being monitored and for the most part are in the acceptable range. It is noted that he continues to have some hematuria. He has been treated for urinary tract infection, and urine culture obtained at the time of admission showed growth of Streptococcus agalactiae, group B. He has been treated with IV Rocephin for the urinary tract infection. PHYSICAL EXAMINATION: General: He is a frail elderly gentleman, who is lying in bed. He was in no acute distress, but as we talked about his overall situation and his 's decline, he became rather tearful. He admitted that it has become more difficult for him to take care of her as she has become gradually more confused. They would appear to have limited family involvement from their children. Mrs. Mahoney has a sister who lives in [place], who apparently frequently visits. He otherwise denied any new complaints. No chest pain or shortness of breath. No abdominal pain. No calf or leg pain. Vital Signs: Blood pressure 169/51 and on repeat 149/58, pulse 68 and regular, respiratory rate 20, and oxygen saturation 100% on room air. He is afebrile. HEENT: Unremarkable. ENT: Clear. Chest: Showed clear, but diminished bilateral breath sounds. Heart: Showed regular rate and rhythm. Abdomen: Soft and benign. Extremities: Showed no edema. NEUROLOGICAL: He was intact. PLAN: 1. A renal ultrasound was ordered for 01/06 to evaluate any possible contributing causes to the hematuria. 2. Diabetes. Blood sugars are fairly well controlled. 3. Urinary tract infection has been treated with ceftriaxone, and this was discontinued today. 4. The [facility]-bed coordinator has started the process of seeking halfway placement for Mr. Mahoney and his . She has been in contact with their daughter. At this point, it looks as if we may have placement for them in [facility] at the beginning of next week. We will obtain the ultrasound today in order to determine if there are any further issues that need to be addressed in followup once he is transferred to halfway. 5. Medications reviewed, and a number of PRN medications have been discontinued that were not being used. No other changes are made in his care today. [facility] /[id number] [place]
[2017-01-06] MEDS: Aspirin 81 MG Tab.Chew PO SCH (08:56)
[2017-01-06] MEDS: Insulin Aspart 100 Units/ML 3 ML Pen SUBCUT SCH ×3 (08:56→17:50)
[2017-01-06] MEDS: Metoprolol Succinate 50 MG Tab.ER PO SCH (08:56)
[2017-01-06] MEDS: Sodium Bicarbonate 650 MG Tab PO SCH ×2 (08:56→20:22)
--- NOTE | 2017-01-06 11:12 | US ---
Clinical history: 89-year-old male with hematuria and weight loss reported on CT scan chest/abdomen 24 September 2015 to have "no definite evidence of acute abdominal or pelvic (bladder unremarkable/no st ones) pathology". Interpretation: 1. Normal kidneys and upper tracts. No sign of renal cortical mass (cyst solid or cystic), nephrolit hiasis or obstructive uropathy. 2. *Symmetrically distended urinary bladder with discrete fixed 5.6 x 7.6 x 2.7 cm diameter soft tis irene mass posteriorly at the base of the urinary bladder, midline and extending to the right. No intr aluminal mobile echogenic "shadowing" bladder stones. 3. Right kidney measures 8.5 cm L x 6.8 cm W x 4.1 cm AP diameter. 4. Left kidney measures 7.4 cm L x 3.8 cm W x 5.1 cm AP diameter. Normal ureteral "jets" identified urinary bladder bilaterally. CONCLUSION: Suspicious intraluminal mass lesion base of the urinary bladder. Negative kidneys and up per tracts.
[2017-01-06] MEDS: Acetaminophen 325 MG Tab PO PRN (20:23)
[2017-01-06] MEDS: Sodium Chloride 0.9% 10 ML Syringe FLUSH PRN (23:59)
[2017-01-07] MEDS ORDERED: Sodium Chloride 0.9% 1,000 ML IV SCH
--- NOTE | 2017-01-07 07:54 | PN ---
DATE: 01/06/2017 SUBJECTIVE: Mr. Mahoney is an 89-year-old gentleman, who was admitted from home along with his , Jane. He initially presented with dehydration secondary to ongoing diarrhea. On admission, he was found to be in acute renal failure with a BUN and creatinine of 80 and 3.7. He has received IV fluid hydration and has improved BUN and creatinine of 16 and 1.3, with a GFR of 52 and a creatinine clearance of 29.7. It was noted yesterday, he had begun to have some hematuria. He had been treated for a urinary tract infection. A urine culture was positive for Streptococcus agalactiae, group B. This has been treated with IV Rocephin, which has since been discontinued. He, of course, is complaining of some dysuria with the hematuria. A renal ultrasound was ordered to further evaluate any possible contributing cause in the urinary tract symptoms for the hematuria other than a cystitis. The ultrasound results are grossly abnormal and show a 5.6 x 7.6 x 2.7 cm soft tissue mass posteriorly at the base of the urinary bladder. No bladder stones were seen. The kidneys and upper urinary tracts were normal. No evidence for any renal masses or cysts. There was no obstructive uropathy, the kidneys were normal in size. The ureteral jets were seen bilaterally and were normal. The conclusion of the scan was that of suspicious intramural mass lesion at the base of the urinary bladder. The results were discussed with Mr. Mahoney, his 2 sons and daughter who were also present for the discussion. We had the scan sent to [place] and discussed the findings with Dr. Pedro Garay, Urology on-call. He will arrange to have Mr. Mahoney seen next week at [facility] in [place] for further evaluation and treatment. Our current plan is that Mr. Mahoney will be transferred to the [facility] for admission to their residential facility. Dr. Garay is aware that Mr. Mahoney will be admitted there, and he will contact [facility] directly regarding followup appointments. At this point, he is voiding freely and there has been no issue with obstruction by clots. If that should happen, we will place a Patel catheter and, if necessary, irrigate the bladder. Our followup lab work today included a repeat BUN and creatinine, which have improved from the time of admission. BUN and creatinine at admission were 80 and 3.7, with a GFR of 16. BUN and creatinine have now improved to 16 and 1.3, with a GFR of 52. Blood sugars have been fairly well controlled. Review of his clinical data shows that he is taking in adequate fluids. He is voiding and moving his bowels. Appetite is fair. He is tolerating his diet. Vital signs have been stable and he has remained afebrile. PHYSICAL EXAMINATION: General: He is seated comfortably in his recliner. His mood and affect are much improved since the time of admission, and he seems to be enjoying the visit with his 2 sons and daughter. HEENT: Unremarkable. ENT was clear. Chest: Showed clear bilateral breath sounds. Heart: Showed regular rate and rhythm. ABDOMEN: Soft, benign, nontender. No masses were appreciated. IMPRESSION: An 89-year-old gentleman, was admitted with acute renal failure in the setting of dehydration. He now has hematuria and has been found to have a large suspicious mass at the base of the urinary bladder. PLAN: 1. We have arranged for a CT scan with a urogram. This will be performed on Monday morning, January 07. IV contrast will be used as his renal function is improved. He will be kept n.p.o. after midnight tonight except for clear liquids. He was started on IV fluids to keep the kidneys well hydrated. We will repeat his BUN and creatinine in the morning prior to the study. Results of the scan will be sent to Dr. Garay. 2. Dehydration has been treated and resolved. 3. Placement issues. Swing bed coordinator has been working on placement for and Mrs. Mahoney. At this time, it appears that they will be admitted to [facility] in [place]. Mr. Mahoney will be admitted at the beginning of the week and will follow up at [facility] for his urinary tract issues. 4. He otherwise has been doing well and remains hemodynamically stable. [facility] /[id number] [place]
[2017-01-07] MEDS ORDERED: Iopamidol 612 MG/ML 75 ML Bottle IVPUSH ONE (08:00)
[2017-01-07] MEDS: Insulin Aspart 100 Units/ML 3 ML Pen SUBCUT SCH ×3 (08:49→17:08)
[2017-01-07] MEDS: Metoprolol Succinate 50 MG Tab.ER PO SCH (08:57)
[2017-01-07] MEDS: Sodium Bicarbonate 650 MG Tab PO SCH ×2 (08:57→20:45)
--- NOTE | 2017-01-07 10:56 | PCM.PN ---
- General Info Date of Service: 01/07/17 Admission Dx/Problem (Free Text): Admission Diagnosis/Problem Admission Diagnosis/Problem Acute renal failure secondary to dehydration secondary to diarrhea Subjective Update: He had CT Urogram this morning and has massive fluid retention in the bladder, he is hungry and wanted eat, No nausea or vomiting. No abdominal pain but still has blood in urine but no dysuria - Review of Systems General: Reports: Weakness, Fatigue, Malaise, Appetite (good). Denies: Fever, Chills HEENT: Denies: Headaches, Sinus Congestion, Sore Throat, Visual Changes Pulmonary: Denies: Shortness of Breath, Pleuritic Chest Pain, Cough, Hemoptysis , Wheezing Cardiovascular: Denies: Chest Pain, Orthopnea, Lightheadedness Gastrointestinal: Denies: Abdominal Pain, Diarrhea, Nausea, Vomiting Genitourinary: Reports: Retention (siggnificant urine). Denies: Dysuria, Frequency, Burning, Urgency Musculoskeletal: Denies: Shoulder Pain, Hand Pain, Back Pain, Leg Pain Skin: Reports: Rash (in groin area B/L). Denies: Cyanosis, Jaundice, Bruising, Pruritis Neurological: Reports: Weakness. Denies: Dizziness, Numbness, Tremors Psychiatric: Denies: Confusion, Anxiety - Patient Data Vitals - Most Recent: Last Vital Signs Temp 36.8 C 01/07/17 06:52 Pulse 65 01/07/17 08:57 Resp 20 01/07/17 06:52 BP 169/51 H 01/07/17 08:57 Pulse Ox 99 01/07/17 06:52 Weight - Most Recent: 54.431 kg I&O - Last 24 Hours: Intake & Output 01/06/17 01/07/17 01/07/17 22:59 06:59 14:59 Intake Total 200 309 Balance 200 309 Lab Results Last 24 Hours: Laboratory Results - last 24 hr 01/06/17 01/06/17 01/06/17 Range/Units 11:05 17:23 20:56 BUN (7-18) mg/dL Creatinine (0.6-1.3) mg/dL Est Cr Clr Drug Dosing mL/min Estimated GFR (MDRD) POC Glucose 148 H 144 H 256 H (83-110) mg/dl 01/07/17 01/07/17 Range/Units 05:30 07:50 BUN 16 (7-18) mg/dL Creatinine 1.3 (0.6-1.3) mg/dL Est Cr Clr Drug Dosing 29.66 mL/min Estimated GFR (MDRD) 52 POC Glucose 98 (83-110) mg/dl Med Orders - Current: Current Medications Acetaminophen (Tylenol) 650 mg PO Q4H PRN PRN Reason: Pain (Mild 1-3)/fever Last Admin: 01/06/17 20:23 Dose: 650 mg Sodium Chloride (Normal Saline) 1,000 mls @ 50 mls/hr IV ASDIRECTED [facility] Last Admin: 01/06/17 23:57 Dose: 50 mls/hr Insulin Aspart (Novolog) 0 unit SUBCUT TIDAC [facility] PRN Reason: Protocol Last Admin: 01/07/17 08:49 Dose: Not Given Metoprolol Succinate (Toprol Xl) 100 mg PO DAILY [facility] Last Admin: 01/07/17 08:57 Dose: 100 mg Sodium Bicarbonate (Sodium Bicarbonate) 650 mg PO BID [facility] Last Admin: 01/07/17 08:57 Dose: 650 mg Sodium Chloride (Saline Flush) 10 ml FLUSH ASDIRECTED PRN PRN Reason: Keep Vein Open Last Admin: 01/06/17 23:59 Dose: 10 ml Zolpidem Tartrate (Ambien) 5 mg PO BEDTIME PRN PRN Reason: Sleep Discontinued Medications Aspirin (Aspirin) 81 mg PO WITHBREAKFAST [facility] Last Admin: 01/06/17 08:56 Dose: 81 mg Heparin Sodium (Porcine) (Heparin Sodium) 5,000 units SUBCUT Q8HR [facility] Last Admin: 01/06/17 13:33 Dose: Not Given Sodium Chloride (Normal Saline) 1,000 mls @ 999 mls/hr IV .BOLUS ONE Stop: 12/31/16 21:37 Last Infusion: 12/31/16 20:45 Dose: 125 mls/hr Sodium Chloride (Normal Saline) 1,000 mls @ 100 mls/hr IV ASDIRECTED [facility] Last Admin: 01/04/17 11:06 Dose: 100 mls/hr Ceftriaxone Sodium 1 gm/ (Sodium Chloride) 50 mls @ 100 mls/hr IV Q24H [facility] Last Admin: 01/05/17 22:46 Dose: Not Given Iopamidol (Isovue-300 (61%)) 75 ml IVPUSH ONETIME ONE Stop: 01/07/17 08:01 Last Admin: 01/07/17 08:24 Dose: 75 ml Lidocaine HCl (Xylocaine 2% Viscous) 15 ml PO Q6H PRN PRN Reason: pain, mouth sore Morphine Sulfate (Morphine) 1 mg IVPUSH Q2H PRN PRN Reason: Pain (severe 7-10) Ondansetron HCl (Zofran Odt) 4 mg PO Q6H PRN PRN Reason: nausea, able to take PO Ondansetron HCl (Zofran) 4 mg IVPUSH Q6H PRN PRN Reason: Nausea/Vomiting Oxycodone HCl (Oxycodone) 5 mg PO Q4H PRN PRN Reason: Pain (moderate 4-6) Potassium Chloride (Klor-Con 10) 20 meq PO BIDMEALS [facility] Stop: 01/02/17 08:01 Potassium Chloride (Potassium Chloride Solution) 20 meq PO BIDMEALS [facility] Stop: 01/02/17 08:01 Last Admin: 01/02/17 09:46 Dose: 20 meq - Exam Quality Assessment: Urine Catheter. No: Supplemental Oxygen, DVT Prophylaxis General: Alert, Oriented, Cooperative, No Acute Distress HEENT: Pupils Equal, EOMI, Mucous Membr. Moist/[place] Neck: Supple, No JVD, No Thyromegaly Lungs: Clear to Auscultation, Normal Respiratory Effort Cardiovascular: Regular Rate, Regular Rhythm, Murmurs GI/Abdominal Exam: Normal Bowel Sounds, Soft, Non-Tender, No Distention. No: Guarding, Rebound (Male) Exam: Normal Inspection, Rash (b?L inguinal area). No: Scrotal Swelling Back Exam: Normal Inspection, Full Range of Motion Extremities: Normal Inspection, Normal Range of Motion, Non-Tender, No Pedal Edema Skin: Warm, Dry, Intact Neurological: No New Focal Deficit Psy/Mental Status: Alert, Normal Affect, Normal Mood - Problem List & Annotations (1) Bladder mass SNOMED Code(s): 476297951 Code(s): N32.89 - OTHER SPECIFIED DISORDERS OF BLADDER Status: Acute Current Visit: Yes (2) ARF (acute renal failure) SNOMED Code(s): 23055492 Code(s): N17.9 - ACUTE KIDNEY FAILURE, UNSPECIFIED Status: Acute Current Visit: Yes Qualifiers: Acute renal failure type: unspecified Qualified Code(s): N17.9 - Acute kidney failure, unspecified (3) CAD (coronary artery disease) SNOMED Code(s): 54084500 Code(s): I25.10 - ATHSCL HEART DISEASE OF [place] CORONARY ARTERY W/O ANG PCTRS Status: Acute Current Visit: Yes (4) Diarrhea SNOMED Code(s): 48768798 Code(s): R19.7 - DIARRHEA, UNSPECIFIED Status: Acute Current Visit: Yes (5) HTN (hypertension) SNOMED Code(s): 41092723 Code(s): I10 - ESSENTIAL (PRIMARY) HYPERTENSION Status: Acute Current Visit: Yes (6) UTI (urinary tract infection) SNOMED Code(s): 66752298 Code(s): N39.0 - URINARY TRACT INFECTION, SITE NOT SPECIFIED Status: Acute Current Visit: Yes - Problem List Review Problem List Initiated/Reviewed/Updated: Yes - My Orders Last 24 Hours: My Active Orders 01/07/17 09:35 Communication Order [RC] ROUTINE - Plan Plan:: This is 89 Y/O pleasant Male admitted with acute renal failure secondary to dehydration from Diarrhea and also noted to have UTI with staphylococcus agalactiae, Group B and treated with IV Ceftriaxone. He was noted to have dysuria with Hematuria . A renal U/S was ordered and noted to have a 5.6X7.6x2.7 cm soft tissue mass at the base of the urinary bladder. 1. Acute renal failure with a history of chronic kidney disease stage III Likely due to dehydration due to nausea vomiting, diarrhea -Improved with IV hydration and renal function is back to base line -Encourage oral intake and will stop IV fluids -Continue to Hold Lasix, lisinopril 2. Metabolic Acidosis: This is likely from CKD and WILL as well as UTI- cont sodium bicarbonate Follow electrolytes and renal function 3. Diabetes 2: Will continue hold amaryl and follow blood sugars Use supplemental insulin as needed 4. Hypertension: BP acceptable and will continue metoprolol 100 mg daily 5. Urinary tract infection: urine culture: strep agalactiae Group B, sens to pcn, ampicillin - blood culture: neg - Completed treatment with IV Rocephin 6. Diarrhea: resolved 7. Hematuria: Ptb had renal U/S and noted to have a 5.6X7.6x2.7 cm soft tissue mass at the base of the urinary bladder. He had today ( 01/07/17) CT urogram and showed" Soft tissue Mass Extending from the posterior right lateral aspect of the bladder measures 2.6 x 2x 2.7 cm, this may represent exophytic bladder masses. The is going to be transferred to to [facility] at [place], and will be seen by Urologist at [place] 8. DVT prophylaxis will be with subcutaneous heparin Resuscitative efforts were discussed with the patient on admission: He wished to be DNR/DNI
[2017-01-08] MEDS: Insulin Aspart 100 Units/ML 3 ML Pen SUBCUT SCH ×3 (08:32→19:17)
[2017-01-08] MEDS: Metoprolol Succinate 50 MG Tab.ER PO SCH (08:32)
[2017-01-08] MEDS: Sodium Bicarbonate 650 MG Tab PO SCH ×2 (08:37→20:51)
[2017-01-08] MEDS: Sodium Chloride 0.9% 10 ML Syringe FLUSH PRN (08:39)
--- NOTE | 2017-01-08 12:15 | PCM.PN ---
- General Info Date of Service: 01/08/17 Admission Dx/Problem (Free Text): Admission Diagnosis/Problem Admission Diagnosis/Problem Acute renal failure secondary to dehydration, secondary to diarrhea Subjective Update: He had CT Urogram on 01/07 and had significant fluid retention in the bladder, now with esqueda catheter ,, No nausea or vomiting,. No abdominal pain but still has blood in urine but no dysuria, feeling too sleepy Functional Status: Reports: Pain Controlled, Tolerating Diet, Urinating (has esqueda catheter) - Review of Systems General: Reports: Weakness, Malaise, Appetite (acceptable). Denies: Fever, Chills HEENT: Denies: Headaches, Sinus Congestion, Sore Throat Pulmonary: Denies: Shortness of Breath, Cough, Sputum, Wheezing Cardiovascular: Denies: Chest Pain, Palpitations, Lightheadedness Gastrointestinal: Reports: Diarrhea (had large BM ), Difficulty Swallowing (on soft diet). Denies: Abdominal Pain Genitourinary: Reports: Retention (has esqueda catheter). Denies: Dysuria, Burning, Urgency, Flank Pain Musculoskeletal: Denies: Neck Pain, Shoulder Pain, Foot Pain, Joint Swelling Skin: Denies: Cyanosis, Jaundice, Bruising, Pruritis, Rash Neurological: Reports: Difficulty Walking, Weakness. Denies: Confusion, Tremors Psychiatric: Denies: Confusion, Anxiety - Patient Data Vitals - Most Recent: Last Vital Signs Temp 36.9 C 01/08/17 07:00 Pulse 67 01/08/17 08:32 Resp 20 01/08/17 07:00 BP 148/56 H 01/08/17 08:32 Pulse Ox 98 01/08/17 07:00 Weight - Most Recent: 54.431 kg I&O - Last 24 Hours: Intake & Output 01/07/17 01/08/17 01/08/17 22:59 06:59 14:59 Intake Total 754 100 Output Total 500 Balance 254 100 Lab Results Last 24 Hours: Laboratory Results - last 24 hr 01/07/17 01/07/17 01/08/17 Range/Units 17:01 20:51 07:41 POC Glucose 125 H 151 H 88 (83-110) mg/dl 01/08/17 Range/Units 11:00 POC Glucose 119 H (83-110) mg/dl Med Orders - Current: Current Medications Acetaminophen (Tylenol) 650 mg PO Q4H PRN PRN Reason: Pain (Mild 1-3)/fever Last Admin: 01/06/17 20:23 Dose: 650 mg Insulin Aspart (Novolog) 0 unit SUBCUT TIDAC [facility] PRN Reason: Protocol Last Admin: 01/08/17 11:55 Dose: Not Given Metoprolol Succinate (Toprol Xl) 100 mg PO DAILY [facility] Last Admin: 01/08/17 08:32 Dose: 100 mg Nystatin/Triamcinolone Acetonide (Mycolog Oint) 0.2 gm TOP DAILY [facility] Sodium Bicarbonate (Sodium Bicarbonate) 650 mg PO BID [facility] Last Admin: 01/08/17 08:37 Dose: 650 mg Sodium Chloride (Saline Flush) 10 ml FLUSH ASDIRECTED PRN PRN Reason: Keep Vein Open Last Admin: 01/08/17 08:39 Dose: 10 ml Zolpidem Tartrate (Ambien) 5 mg PO BEDTIME PRN PRN Reason: Sleep Discontinued Medications Aspirin (Aspirin) 81 mg PO WITHBREAKFAST [facility] Last Admin: 01/06/17 08:56 Dose: 81 mg Heparin Sodium (Porcine) (Heparin Sodium) 5,000 units SUBCUT Q8HR [facility] Last Admin: 01/06/17 13:33 Dose: Not Given Sodium Chloride (Normal Saline) 1,000 mls @ 999 mls/hr IV .BOLUS ONE Stop: 12/31/16 21:37 Last Infusion: 12/31/16 20:45 Dose: 125 mls/hr Sodium Chloride (Normal Saline) 1,000 mls @ 100 mls/hr IV ASDIRECTED [facility] Last Admin: 01/04/17 11:06 Dose: 100 mls/hr Ceftriaxone Sodium 1 gm/ (Sodium Chloride) 50 mls @ 100 mls/hr IV Q24H [facility] Last Admin: 01/05/17 22:46 Dose: Not Given Sodium Chloride (Normal Saline) 1,000 mls @ 50 mls/hr IV ASDIRECTED [facility] Last Admin: 01/06/17 23:57 Dose: 50 mls/hr Iopamidol (Isovue-300 (61%)) 75 ml IVPUSH ONETIME ONE Stop: 01/07/17 08:01 Last Admin: 01/07/17 08:24 Dose: 75 ml Lidocaine HCl (Xylocaine 2% Viscous) 15 ml PO Q6H PRN PRN Reason: pain, mouth sore Morphine Sulfate (Morphine) 1 mg IVPUSH Q2H PRN PRN Reason: Pain (severe 7-10) Ondansetron HCl (Zofran Odt) 4 mg PO Q6H PRN PRN Reason: nausea, able to take PO Ondansetron HCl (Zofran) 4 mg IVPUSH Q6H PRN PRN Reason: Nausea/Vomiting Oxycodone HCl (Oxycodone) 5 mg PO Q4H PRN PRN Reason: Pain (moderate 4-6) Potassium Chloride (Klor-Con 10) 20 meq PO BIDMEALS [facility] Stop: 01/02/17 08:01 Potassium Chloride (Potassium Chloride Solution) 20 meq PO BIDMEALS [facility] Stop: 01/02/17 08:01 Last Admin: 01/02/17 09:46 Dose: 20 meq - Exam Quality Assessment: Urine Catheter, DVT Prophylaxis. No: Supplemental Oxygen General: Alert, Oriented, Cooperative, No Acute Distress HEENT: Pupils Equal, Mucous Membr. Moist/[place] Neck: Supple. No: No JVD, No Thyromegaly, Lymphadenopathy Lungs: Clear to Auscultation, Normal Respiratory Effort. No: Crackles, Wheezing Cardiovascular: Regular Rate, Regular Rhythm, Murmurs GI/Abdominal Exam: Normal Bowel Sounds, Soft. No: Guarding, Rebound, Tender (Male) Exam: Deferred Extremities: Normal Inspection, No Pedal Edema Skin: Warm, Dry, Intact Neurological: No New Focal Deficit Psy/Mental Status: Alert, Normal Affect, Normal Mood - Problem List & Annotations (1) Bladder mass SNOMED Code(s): 585449266 Code(s): N32.89 - OTHER SPECIFIED DISORDERS OF BLADDER Status: Acute Current Visit: Yes (2) ARF (acute renal failure) SNOMED Code(s): 62470503 Code(s): N17.9 - ACUTE KIDNEY FAILURE, UNSPECIFIED Status: Acute Current Visit: Yes Qualifiers: Acute renal failure type: unspecified Qualified Code(s): N17.9 - Acute kidney failure, unspecified (3) CAD (coronary artery disease) SNOMED Code(s): 98869713 Code(s): I25.10 - ATHSCL HEART DISEASE OF [place] CORONARY ARTERY W/O ANG PCTRS Status: Acute Current Visit: Yes (4) Diarrhea SNOMED Code(s): 85778542 Code(s): R19.7 - DIARRHEA, UNSPECIFIED Status: Acute Current Visit: Yes (5) HTN (hypertension) SNOMED Code(s): 38158050 Code(s): I10 - ESSENTIAL (PRIMARY) HYPERTENSION Status: Acute Current Visit: Yes (6) UTI (urinary tract infection) SNOMED Code(s): 33246233 Code(s): N39.0 - URINARY TRACT INFECTION, SITE NOT SPECIFIED Status: Acute Current Visit: Yes - Problem List Review Problem List Initiated/Reviewed/Updated: Yes - My Orders Last 24 Hours: My Active Orders 01/07/17 13:43 Urinary Catheter Assessment [RC] ASDIRECTED 01/07/17 Dinner Mechanical Soft Diet [DIET] 01/08/17 09:00 Nystatin/Triamcinolone Oint [Mycolog Oint] 0.2 gm TOP DAILY 01/08/17 10:46 C DIFFICILE TOXIN BY PCR [MREF] Routine - Plan Plan:: This is 89 Y/O pleasant Male admitted with acute renal failure secondary to dehydration from Diarrhea and also noted to have UTI with staphylococcus agalactiae, Group B and treated with IV Ceftriaxone. He was noted to have dysuria with Hematuria . A renal U/S was ordered and noted to have a 5.6X7.6x2.7 cm soft tissue mass at the base of the urinary bladder. 1. Acute renal failure with a history of chronic kidney disease stage III Likely due to dehydration due to nausea vomiting, diarrhea -Improved with IV hydration and renal function is back to base line -Encourage oral intake and not on IV fluids -Continue to Hold Lasix, lisinopril 2. Metabolic Acidosis: This is likely from CKD and WILL as well as UTI- continue sodium bicarbonate Follow electrolytes and renal function 3. Diabetes 2: Will continue hold amaryl and follow blood sugars Use supplemental insulin as needed 4. Hypertension: BP acceptable and will continue metoprolol 100 mg daily 5. Urinary tract infection: urine culture: strep agalactiae Group B, sens to pcn, ampicillin - blood culture: neg - Completed treatment with IV Rocephin 6. Diarrhea: resolved, but had one large BM last night with foul smell, will get C. diff ( I have placed the order) 7. Hematuria: Pt had renal U/S and noted to have a 5.6X7.6x2.7 cm soft tissue mass at the base of the urinary bladder. He had today ( 01/07/17) CT urogram and showed" Soft tissue Mass Extending from the posterior right lateral aspect of the bladder measures 2.6 x 2x 2.7 cm, this may represent exophytic bladder masses. He is going to be transferred to to [facility] at [place] on Monday, and will be seen by Urologist at [place] 8. DVT prophylaxis will be with subcutaneous heparin Resuscitative efforts were discussed with the patient on admission: He wished to be DNR/DNI
[2017-01-08] MEDS: Acetaminophen 325 MG Tab PO PRN (20:53)
[2017-01-09] MEDS: Acetaminophen 325 MG Tab PO PRN (08:00)
[2017-01-09] MEDS: Insulin Aspart 100 Units/ML 3 ML Pen SUBCUT SCH ×2 (08:33→14:12)
[2017-01-09] MEDS: Metoprolol Succinate 50 MG Tab.ER PO SCH (10:08)
[2017-01-09] MEDS: Sodium Bicarbonate 650 MG Tab PO SCH (10:08)
[2017-01-09 10:15] VITALS: BP 122/44
--- NOTE | 2017-01-21 01:12 | DISCH ---
DISCHARGE DIAGNOSES: 1. Dehydration, corrected. 2. General decline and weakness. 3. Acute renal failure, improved. 4. Anemia. 5. Urinary tract infection, strep agalactiae group B, treated. 6. Hematuria. 7. Depression, situational. 8. Hypertension. 9. Type 2 diabetes, fairly well controlled. 10.Suspected mass at the base of the bladder, later ruled out on cystoscopy performed on 01/12/2017. 11.Pikvy-sq-yzrotcp renal failure. BRIEF HISTORY OF PRESENT ILLNESS: Mr. Mahoney is an 89-year-old gentleman, who was admitted from his home along with his Jane. They lived in an apartment at [facility] and have been in decline for some time. Mr. Mahoney had developed diarrhea and had become dehydrated and was admitted with acute renal failure. Because his could not stay at home unattended, she was also admitted. On initial presentation to the ER, he was in acute renal failure with a BUN of 80 and a creatinine of 3.7 and a GFR of 16. He is admitted for further evaluation and management. PERTINENT LABS AND X-RAYS: CBC on the day of admission showed a white count of 10,000, hemoglobin and hematocrit were 10 and 30.5 and were 9.1 and 28.2 at the time of discharge. Platelets were normal. Chemistry showed normal electrolytes. Admission BUN and creatinine were 87 and 3.7 with a GFR of 16 and a creatinine clearance of 10. At the time of discharge, following hydration, BUN and creatinine were improved to 16 and 1.3 with a GFR of 52 and a creatinine clearance of 29. Troponins were slightly elevated at 0.05 and 0.07, however the patient was in acute renal failure at that time. BNP was slightly elevated at 417. LFTs were unremarkable. Lactic acid was normal at 1.5. Urinalysis showed a cloudy yellow urine with a specific gravity of 1.015. There is a large amount of occult blood. A sample was also positive for leukocyte esterase, but negative for nitrites. Microscopic exam showed packed white cells and 5 to 10 red cells per high-power field and many bacteria. One set of blood cultures showed no growth after 5 days. Urine culture was positive for Streptococcus agalactiae group B. The organism was sensitive to the limited number of antibiotics tested. A 12-lead EKG was performed and showed a normal sinus rhythm with a ventricular rate of 64. There were normal axis and intervals. There is an incomplete left bundle-branch block. No further comments are made. A 2-view chest x-ray taken at the time of admission, showed no acute cardiopulmonary disease and was unchanged from previous study dated July 30, 2009. A retroperitoneal ultrasound was obtained after Mr. Mahoney developed visible hematuria. This showed normal kidneys and upper tracts. No sign of any masses or stones. No obstructive uropathy. There was a suspicion of a soft tissue mass at the base of the urinary bladder. There were normal ureteral jets identified. The retroperitoneal ultrasound was followed by a CT scan of the abdomen and pelvis with and without IV contrast using urogram protocol. This was performed to further delineate the possibility of mass or other lesion within the abdomen. Again seen was a possible soft-tissue mass in the posterior bladder. There was also a 14 x 11 mm low attenuation area in the anterior aspect of the liver. Differential included complex cyst infection, hematoma, and neoplasm. An echocardiogram was obtained on January 02. It showed the left ventricle to be normal in size and wall thickness. Left ventricular systolic function was preserved with an estimated ejection fraction of 60% to 65%. Right ventricle showed normal systolic function. There is moderate mitral regurgitation and no other significant valvular pathology. No pericardial effusion. HOSPITAL COURSE: Mr. Mahoney was admitted with [id number] renal failure and received IV fluid hydration. The acute renal failure was felt to be secondary to the dehydration caused by the diarrhea. His usual medications were continued. His blood sugars were covered with a NovoLog sliding-scale protocol. For the urinary tract infection, he was started on IV Rocephin 1 g IV every 24 hours. He received heparin for VTE prophylaxis, although this was later stopped with the appearance of the hematuria. He received p.r.n. oxycodone for pain. He was noted to have skin breakdown on the buttocks and this was treated daily by the nursing staff. With the appearance of hematuria, we ordered the retroperitoneal ultrasound which raised the possibility of a mass in the base of the bladder. This was followed by CT urogram which again raised the possibility of a mass on the base of the bladder. We discussed these findings with the urologist director television in [place], Dr. Pedro Garay. It had been decided that placement would be sought for and Mrs. Mahoney and we obtained beds for both of them at [facility] and Dr. Garay made arrangements to follow up on Mr. Mahoney once he had been transferred. Dr. Garay did perform a cystoscopy on January 12, 2017, because of the finding of hematuria and possible bladder mass. We had also placed a Patel catheter when Mr. Mahoney was in [place] because CT scan demonstrated a large volume urinary retention of almost 1 L. Following the cystoscopy on January 12, a Patel catheter was replaced with a plan for future voiding trials. A mass was not identified in the bladder. Dr. Garay felt that the image of a possible mass was due to lateral lobe hypertrophy with median lobe projection of the prostate into the bladder. There is also moderate trabeculation in the bladder. The bladder itself was thickened. There were no stones or tumors identified. 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 He did have some generalized friable urothelium particularly on the posterior wall associated with the Patel catheter. No evidence of bladder tumors were found and again, the imaging studies seemed to be related to the prostate lobe, as well as the thickened bladder and diverticulum. It was felt that no further evaluation was needed. He was started on Flomax because of the large volume urinary retention. Patel catheter was replaced and the plan was for them to try voiding trial in 1 month. Mr. Mahoney slowly improved. At the beginning of the admission, his mood was rather labile and at times he was tearful. This related to the fact that both he and his were in failing health and live alone and did not have much help from their children. Their 3 children did show up during the admission, 2 sons who live in [place] and a daughter who lives somewhere here in [place]. Mrs. Mahoney has a sister, who visits regularly from [place]. It was agreed upon by all that they could not return to their apartment and live on their own and arrangements were made for both to be admitted to [facility]. This is also appropriate for Mrs. Mahoney as well as she had multiple medical problems and was in need of urgent care from Nephrology because of renal failure and anasarca. Mr. Mahoney will be discharged to [facility] for ongoing care. [facility] will arrange for a primary care physician at see him there. DISCHARGE MEDICATIONS: 1. Metoprolol succinate 100 mg daily. 2. Tylenol 650 mg every 4 hours p.r.n. 3. Nystatin/triamcinolone to apply daily to affected areas. The fpc was also informed of impending follow up with Dr. Garay. His nurse will contact the fpc directly to setup the arrangements for the cystoscopy which was eventually done on January 12. We will leave the Patel catheter in place because of the large volume urinary retention. We also ordered glucose checks t.i.d., but will allow [facility] to decide with their provider on dosing of a sliding scale. Mrs. Mahoney was discharged directly to [facility] and will eventually be admitted to [facility] as well. CONDITION AT THE TIME OF DISCHARGE: Hemodynamically and neurologically stable. CODE STATUS DURING THIS ADMISSION: DNR/DNI. [facility] /[id number] [place]
== END 2017-01-09 12:15 | DRG 683 ==
LOC: DL.ED 18:45 → DL.MS 21:24 → UNDOADMIN 21:24 → DL.MS 21:55
PROVIDERS: ADMIT Internal Medicine; ATTEND Internal Medicine
DX: N17.9 Acute kidney failure, unspecified (principal); I10 Essential (primary) hypertension; H91.90 Unspecified hearing loss, unspecified ear; H54.7 Unspecified visual loss; N39.0 Urinary tract infection, site not specified; I25.810 Atherosclerosis of coronary artery bypass graft(s) without angina pectoris; E87.2 Acidosis; I12.9 Hypertensive chronic kidney disease with stage 1 through stage 4 chronic kidney disease, or unspecified chronic kidney disease; N18.2 Chronic kidney disease, stage 2 (mild); E86.0 Dehydration; E78.5 Hyperlipidemia, unspecified; F03.90 Unspecified dementia, unspecified severity, without behavioral disturbance, psychotic disturbance, mood disturbance, and anxiety; R53.1 Weakness; R19.7 Diarrhea, unspecified; E11.9 Type 2 diabetes mellitus without complications; R74.8 Abnormal levels of other serum enzymes; Z66 Do not resuscitate; Z88.2 Allergy status to sulfonamides; Z88.8 Allergy status to other drugs, medicaments and biological substances; Z79.899 Other long term (current) drug therapy; R31.9 Hematuria, unspecified; N32.89 Other specified disorders of bladder; B95.4 Other streptococcus as the cause of diseases classified elsewhere
CPT/HCPCS: 36415; 71020; 80053; 81001; 83605; 83735; 83880; 84484; 85025; 87040; 87086; 87088; 87186; 93005; 93010; 96360; 99284; 99285; J7030; 51702; 74178; 76770; 80048; 82565; 82962; 84100; 84520; 92610-GN; 97110-GP; 97116-GP; 97162-GP; 97166-GO; A9270-GY; J0696; J1644; J1815-GY; J7050; Q9967